=== PATIENT | male | born 1960 | race African-American/Black ===

== ENCOUNTER 2024-01-16 05:23 | Emergency (ER) | payer OTHER, SELFPAY ==
[2024-01-16 05:24] VITALS: BP 134/87; PULSE 74; TEMP 36.3; O2SAT 100; BMI 24.0
--- NOTE | 2024-01-16 05:28 | ECG_ITS ---
[facility] Test Date: 2024-01-16 Pat Name: MANOJ CASTRO Department: Room: - Gender: Male [place] [place]: : 1960 Requested By: [id number] Order Number: [id number] Reading MD: ANKIT GODFREY Measurements Intervals [place] Rate: 69 P: 58 MN: 176 QRS: 60 QRSD: 88 T: 55 QT: 370 QTc: 388 Interpretive Statements 1100 Sinus rhythm 9110 normal ECG No previous ECG available for comparison Electronically Signed On 01-16-2024 19:49:50 EST by ANKIT GODFREY
--- NOTE | 2024-01-16 05:50 | ED_ITS ---
HPI HPI - General Adult General Chief complaint: Back Pain/Injury Stated complaint: BACK PAIN Time Seen by Provider: 01/16/24 05:43 Source: patient Mode of arrival: ambulance Limitations: no limitations History of Present Illness HPI narrative: patient is a class a truck driver. Presents complaining of pain of his neck and superior trapezius area. Pain radiates down the left arm. Pain increases with deep breath. Not short of breath but hurts to take deep breath. No fever or injury. fingers feel tingly. No associated nausea or vomiting or fever Related Data Home Medications ?Medication ?Instructions ?Recorded ?Confirmed No Known Home Medications 01/16/24 01/16/24 Allergies Allergy/AdvReac Type Severity Reaction Status Date / Time No Known Drug Allergies Allergy Verified 01/16/24 05:30 Opioid HPI Opioid Management Most Recent Opioid Data: No Data to Display Review of Systems ROS Status of ROS 10 or more systems reviewed and unremark able except as noted in history and below PFSH PFSH Social History Little interest or pleasure in doing things: several days Feeling down, depressed, or hopeless: several days Exam Constitutional Vital Signs, click to edit/add: Last Vital Signs Temp 97.4 F L 01/16/24 05:24 Pulse 74 01/16/24 05:24 Resp 18 01/16/24 05:24 BP 134/87 01/16/24 05:24 Pulse Ox 100 01/16/24 05:24 O2 Del Method Room Air 01/16/24 05:24 Common normals: average body habitus, oriented x3, no limitations, healthy appearing, alert and well nourished Other: discomfort rising from supine to sitting position HENMT Common normals: normocephalic and head/scalp atraumatic Eye Common normals: PERRL, EOMs intact bilaterally and conjunctivae normal Respiratory Common normals: normal respiratory effort, no retractions, no use of accessory muscles and clear to auscultation bilaterally Cardio Common normals: regular rate, regular rhythm, S1 normal heart sound and S2 normal heart sound GI Common normals: Normal to inspection, nondistended, normoactive bowel sounds present, soft to palpation and non-tender Extremity Common normals: normal to inspection and full ROM Neuro Common normals: oriented x3, CN's II-XII intact bilaterally, moves all extremities and no focal motor deficits Psych Appearance: grossly normal Course Vital Signs Vital signs: Vital Signs Temperature 97.4 F L 01/16/24 05:24 Pulse Rate 74 01/16/24 05:24 Respiratory Rate 18 01/16/24 05:24 Blood Pressure 134/87 01/16/24 05:24 Pulse Oximetry 100 01/16/24 05:24 Oxygen Delivery Method Room Air 01/16/24 05:24 Temperature 97.4 F L 01/16/24 05:24 Pulse Rate 74 01/16/24 05:24 Respiratory Rate 18 01/16/24 05:24 Blood Pressure 134/87 01/16/24 05:24 Pulse Oximetry 100 01/16/24 05:24 Oxygen Delivery Method Room Air 01/16/24 05:24 Medical Decision Making MDM Narrative Medical decision making narrative: presents with pleuritic left chest pain. Points to left superior trapezius as site of discomfort. Pain also increases with change in position. Patient works as a class a truck driver. Denies injury or swelling of his legs. The pain radiates down the left arm. No associated dyspnea or nausea. EKG and cxray are normal. CTA ordered given his pleuritic chest pain and that he is a class a truck driver. DD includes cardiac, PE, cervical radiculopathy , Pleurisy care transferred to oncoming physician at change of shift Lab Data Labs: Lab Results 01/16/24 Range/Units 06:20 WBC 5.2 (4.0-11.0) 10^3/uL RBC 5.12 (4.70-6.10) 10^6/uL Hgb 16.0 (14.0-18.0) g/dL Hct 45.8 (42.0-54.0) % MCV 89.5 (80.0-94.0) fL MCH 31.3 (25.9-34.0) pg MCHC 34.9 (29.9-35.2) g/dL RDW 11.8 (11.0-15.0) % Plt Count 203 (150-450) 10^3/uL MPV 11.0 (9.5-13.5) fL Neut % (Auto) 49.4 (43.0-75.0) % Lymph % (Auto) 39.6 (20.5-60.0) % [place] % (Auto) 7.7 (1.7-12.0) % Eos % (Auto) 2.3 (0.9-7.0) % Baso % (Auto) 0.8 (0.2-2.0) % Neut # (Auto) 2.6 (1.4-6.5) 10^3/uL Lymph # (Auto) 2.1 (1.2-3.8) 10^3/uL [place] # (Auto) 0.4 (0.3-0.8) 10^3/uL Eos # (Auto) 0.1 (0.0-0.7) 10^3/uL Baso # (Auto) 0.0 (0.0-0.1) 10^3/uL Abs Immat Gran (auto) 0.01 (0.00-0.03) 10^3/uL Imm/Tot Granulo (auto) 0.2 (0.0-0.5) % Discharge Plan Discharge Chief Complaint: Back Pain/Injury Clinical Impression: Pleuritic chest pain Patient Disposition: Still a Patient Prescriptions / Home Meds: No Action No Known Home Medications Print Language: Finnish Referrals: Physician,Non-Staff, MD [Primary Care Provider] - 1 week
--- NOTE | 2024-01-16 05:55 | XR_ITS ---
The [address] [address] Patient Name: MANOJ CASTRO MRN: [id number] date: 04/14/1959 Sex: M Assigned Patient Location: ER Current Patient Location: ER Accession/Order Number: [id number] Exam Date: 01/16/2024 06:05 Report Date: 01/16/2024 06:19 At the request of: OMAR PARKER Procedure: XR chest 1V EXAMINATION: XR chest 1V HISTORY: left chest pain COMPARISON: No relevant comparison available. FINDINGS: LUNGS: Underexpanded lungs with mild haziness within left lateral lung base. VASCULATURE: No increased pulmonary vasculature. PLEURA: No pneumothorax, effusion, or pleural thickening. CARDIAC: No cardiomegaly or cardiac silhouette abnormality. MEDIASTINUM: No visible mass or adenopathy. BONES: No fracture or visible bone lesion. OTHER: Negative. XR/XR chest 1V IMPRESSION: 1. Low lung volume examination with trace amount left basilar atelectasis versus infiltrates. Electronically authenticated by: LUISA WHITAKER Date: 01/16/2024 06:19
--- NOTE | 2024-01-16 06:13 | CT_ITS ---
[address] [address] Patient Name: MANOJ CASTRO MRN: [id number] date: 1960 Sex: M Assigned Patient Location: ER Current Patient Location: ER Accession/Order Number: [id number] Exam Date: 01/16/2024 06:57 Report Date: 01/16/2024 07:21 At the request of: OMAR PARKER Procedure: CT angio chest EXAM: CT angio chest HISTORY: left pleuritic chest pain COMPARISON: None. TECHNIQUE: Following intravenous administration of 75 mL of Omnipaque 350, axial soft tissue and lung windows were performed with coronal and sagittal reformats. 3-D MIPS reconstructions were created and reviewed. Findings: The heart is nonenlarged. No pericardial effusion. The thoracic aorta is normal caliber. There is adequate opacification of the pulmonary arteries. No evidence of pulmonary embolism. The central airways are patent. No pneumothorax. No pleural effusion. No focal consolidation. No enlarged mediastinal, hilar, axillary or supraclavicular lymph nodes. No aggressive sclerotic or lytic osseous lesions. CT/CT angio chest IMPRESSION: 1. No pulmonary embolism. Electronically authenticated by: HARESH FOSTER Date: 01/16/2024 07:21
[2024-01-16 06:26] LABS: Basophils Percent Auto 0.8 % (0.2-2.0); Eosinophils Absolute Auto 0.1 10^3/uL (0.0-0.7); Eosinophils Percent Auto 2.3 % (0.9-7.0); Hematocrit 45.8 % (42.0-54.0); Immature Granulocytes Abs Auto 0.01 10^3/uL (0.00-0.03); Immature Granulocytes Pct Auto 0.2 % (0.0-0.5); Lymphocytes Absolute Auto 2.1 10^3/uL (1.2-3.8); Lymphocytes Percent Auto 39.6 % (20.5-60.0); Mean Corpuscular HGB Conc 34.9 g/dL (29.9-35.2); Mean Corpuscular Hemoglobin 31.3 pg (25.9-34.0); Mean Corpuscular Volume 89.5 fL (80.0-94.0); Monocytes Absolute Auto 0.4 10^3/uL (0.3-0.8); Monocytes Percent Auto 7.7 % (1.7-12.0); Neutrophils Absolute Auto 2.6 10^3/uL (1.4-6.5); Neutrophils Percent Auto 49.4 % (43.0-75.0); Platelet Count 203 10^3/uL (150-450); Red Blood Count 5.12 10^6/uL (4.70-6.10); Red Cell Distribution Width 11.8 % (11.0-15.0); White Blood Count 5.2 10^3/uL (4.0-11.0)
[2024-01-16 06:44] LABS: Calcium 8.9 mg/dL (8.5-10.1); Chloride 107 mmol/L (98-107); Estimated GFR (African America >60 (>=60 mL/min/1.73m^2); Estimated GFR (Non-African Ame >60 (>=60 mL/min/1.73m^2); Glucose 97 mg/dL (74-106); Sodium 142 mmol/L (136-145); Troponin I High Sensitivity 22.7 pg/mL (4.0-76.1)
[2024-01-16 07:19] VITALS: BP 154/95; PULSE 75; O2SAT 100
[2024-01-16 07:19] LABS: Glucometer 103 mg/dL (74-106)
== END 2024-01-16 08:22 | disposition home or self-care (01) ==
PROVIDERS: Emergency Provider Internal Medicine
DX: M54.12 Radiculopathy, cervical region (principal); M54.6 Pain in thoracic spine; R09.1 Pleurisy
CPT/HCPCS: 36415; 71045; 71275; 80048; 84484; 85025; 85378; 93005; 99285; Q9967